=== PATIENT | female | born 1975 | race Two or more races ===

== ENCOUNTER 2017-01-06 12:54 | Inpatient (IN) | payer OTHER ==
[2017-01-06 14:46] VITALS: BMI 23.3
--- NOTE | 2017-01-06 16:52 | HP ---
CIWA Score - CIWA Score Nausea/Vomitin-No Nausea/No Vomiting Muscle Tremors: 4-Moderate,w/Arms Extend Anxiety: 3 Agitation: 4-Moderately Restless Paroxysmal Sweats: 3 Orientation: 0-Oriented Tacttile Disturbances: 0-None Auditory Disturbances: 0-None Visual Disturbances: 0-None Headache: 1-Very Mild CIWA-Ar Total Score: 15 Admission ROS [facility] - HPI Chief Complaint: I need to be here for detox Allergies/Adverse Reactions: Allergies Allergy/AdvReac Type Severity Reaction Status Date / Time No Known Allergies Allergy Verified 01/06/17 16:49 History of Present Illness: pt is a 41yr old female with a history of alcohol dependence seeking detox for treatment. pt is on a mmtp program receives 80mg of methadone last dosed yesterday, dose has been verified. Exam Limitations: Language Barrier (understands little ukrainian.) - Ebola screening Have you traveled outside of the country in the last 21 days: No Have you had contact with anyone from an Ebola affected area: No Have you been sick,other than usual withdrawal symptoms: No Do you have a fever: No - Review of Systems Constitutional: Loss of Appetite, Night Sweats, Unexplained wgt Loss EENT: reports: Tearing, Nose Congestion Respiratory: reports: Cough Cardiac: reports: No Symptoms Reported, Syncope GI: reports: Diarrhea, Poor Appetite, Poor Fluid Intake : reports: No Symptoms Reported Musculoskeletal: reports: Back Pain, Joint Pain Integumentary: reports: Flushing, Sweating Neuro: reports: Headache, Tingling, Tremors Endocrine: reports: Excessive Sweating, Flushing, Intolerance to Cold, Intolerance to Heat Hematology: reports: No Symptoms Reported Psychiatric: reports: Judgement Intact, Mood/Affect Appropiate, Orientated x3, Agitated, Anxious Other Systems: Reviewed and Negative Patient History - Patient Medical History Hx Anemia: No Hx Asthma: No Hx Chronic Obstructive Pulmonary Disease (COPD): No Hx Cancer: No Hx Cardiac Disorders: No Hx Congestive Heart Failure: No Hx Hypertension: No Hx Hypercholesterolemia: No Hx Pacemaker: No HX Cerebrovascular Accident: No Hx Seizures: No Hx Dementia: No Hx Diabetes: No Hx Gastrointestinal Disorders: No Hx Liver Disease: No Hx Genitourinary Disorders: No Hx Sexually Transmitted Disorders: No Hx Renal Disease (ESRD): No Hx Thyroid Disease: No Hx Human Immunodeficiency Virus (HIV): No (negative 1 month ago.) Hx Hepatitis C: Yes Hx Depression: Yes Hx Suicide Attempt: Yes (tried to cut self 3months ago) Hx Bipolar Disorder: Yes Hx Schizophrenia: Yes Other Medical History: anxiety - Patient Surgical History Past Surgical History: Yes Hx Neurologic Surgery: No Hx Cataract Extraction: No Hx Cardiac Surgery: No Hx Lung Surgery: No Hx Breast Surgery: No Hx Breast Biopsy: No Hx Abdominal Surgery: No Hx Appendectomy: No Hx Cholecystectomy: No Hx Genitourinary Surgery: No Hx Section: No Hx Orthopedic Surgery: Yes (L MANDIBLE FX AT AGE 8 YRS) Other Surgical History: left mandibular surgery - PPD History Previous Implant?: Yes Documented Results: Negative w/o proof PPD to be Administered?: No - Reproductive History Patient is a Female of Child Bearing Age (11 -55 yrs old): Yes Last Menstrual Period: 01/04/17 Patient : No - Smoking Cessation Smoking history: Current every day smoker Have you smoked in the past 12 months: Yes Aproximately how many cigarettes per day: 20 Cigars Per Day: 0 Hx Chewing Tobacco Use: No Initiated information on smoking cessation: Yes 'Breaking Loose' booklet given: 01/06/17 - Substance & Tx. History Hx Alcohol Use: Yes Hx Substance Use: No Substance Use Type: Alcohol, Cocaine Hx Substance Use Treatment: Yes (last detox 2 weeks ago at [facility] ) - Substances Abused Alcohol Route: Oral Frequency: Daily Amount used: 20 cans of 40oz paula Age of first use: 40 Date of Last Use: 01/06/17 Cocaine Route: Smoking Frequency: Daily Amount used: $200 Age of first use: 12 Date of Last Use: 01/06/17 Heroin Route: Injection Frequency: 1-2 times per week Amount used: 2 bags Age of first use: 12 Date of Last Use: 01/02/17 Family Disease History - Family Disease History Family History: Denies Admission Physical Exam S - Vital Signs Vital Signs: Vital Signs - 24 hr 01/06/17 14:43 Temperature 96.9 F L Pulse Rate 73 Respiratory 18 Rate Blood Pressure 114/81 - Physical General Appearance: Yes: Appropriately Dressed, Moderate Distress, Tremorous, Irritable, Sweating, Anxious HEENTM: Yes: Hearing grossly Normal, Normal Voice Respiratory: Yes: Lungs Clear, Normal Breath Sounds, No Respiratory Distress Neck: Yes: No masses,lesions,Nodules Breast: Yes: Within Normal Limits Cardiology: Yes: Regular Rhythm, Regular Rate, S1, S2 Abdominal: Yes: Normal Bowel Sounds Genitourinary: Yes: Within Normal Limits Back: Yes: Normal Inspection Musculoskeletal: Yes: full range of Motion, Back pain Extremities: Yes: Normal Capillary Refill, Normal Inspection, Tremors Neurological: Yes: Fully Oriented, Alert, Normal Response Integumentary: Yes: Normal Color, Diaphoresis, Track Peters Lymphatic: Yes: Within Normal Limits - Diagnostic (1) Alcohol dependence with uncomplicated withdrawal Current Visit: Yes Status: Chronic (2) Asthma Current Visit: Yes Status: Chronic Qualifiers: Asthma severity: mild (3) Bipolar disorder Current Visit: Yes Status: Chronic (4) Cocaine dependence Current Visit: Yes Status: Chronic (5) Methadone maintenance therapy patient Current Visit: Yes Status: Chronic Comment: last dose received yesterday with 80mg of methadone, verification done. (6) Nicotine dependence Current Visit: Yes Status: Chronic (7) Schizoaffective disorder Current Visit: Yes Status: Chronic Cleared for Admission [facility] - Detox or Rehab [facility] Level of Care: Medically Managed Detox Regimen/Protocol: Librium [facility] Breath Alcohol Content Breath Alcohol Content: 0 Urine Pregancy Test - Result Urine Test Results: Negative- NO Line Present Urine Drug Screen - Results Drug Screen Negative: No Urine Drug Screen Results: ALBERTO-Cocaine, MTD-Methadone, TCA-Tricyclic Antidepress
[2017-01-06] MEDS ORDERED: MENTHOL/PHENOL 1 EACH UD MM PRN (17:06)
[2017-01-06] MEDS ORDERED: hydrOXYzine PAMOATE 50 MG CAPSULE (FP) PO PRN (17:06)
[2017-01-06] MEDS ORDERED: guaiFENesin/D-METHORPHAN HB 10 ML UNIT-DOSE CUPS PO PRN (17:06)
[2017-01-06] MEDS ORDERED: P-EPHED 60MG/TRIPROLIDI 2.5MG TABLET PO PRN (17:06)
[2017-01-06] MEDS ORDERED: MAGNESIUM HYDROX 2400MG/30ML ORAL SUSPENSION 30 ML CUP PO PRN (17:06)
[2017-01-06] MEDS ORDERED: MAGNESIUM CITRATE 300 ML BOTTLE PO PRN (17:06)
[2017-01-06] MEDS ORDERED: MAG HYDROX/AL HYDROX/SIMETH 30 ML UNIT-DOSE CUP PO PRN (17:06)
[2017-01-06] MEDS ORDERED: LOPERAMIDE HCL 2 MG CAPSULE PO PRN (17:06)
[2017-01-06] MEDS ORDERED: chlordiazePOXIDE HCL 25 MG CAPSULE PO PRN (17:06)
[2017-01-06] MEDS ORDERED: IBUPROFEN 400 MG TABLET (FP) PO PRN (17:06)
[2017-01-06] MEDS ORDERED: ACETAMINOPHEN 325 MG TABLET (FP) PO PRN (17:06)
[2017-01-06] MEDS ORDERED: ALBUTEROL SO4 2.5/IPRATROPIUM 0.5 INH SOL 3 ML VIAL.NEB. NEB ONE (17:09)
[2017-01-06] MEDS ORDERED: ALBUTEROL SO4 2.5/IPRATROPIUM 0.5 INH SOL 3 ML VIAL.NEB. NEB PRN (17:09)
[2017-01-06] MEDS ORDERED: chlordiazePOXIDE HCL 25 MG CAPSULE PO ONE (19:00)
[2017-01-06] MEDS ORDERED: METHADONE HCL 40 MG DISPERSABLE TABLET PO ONE (19:00)
[2017-01-06 21:24] LABS: URINE APPEARANCE CLOUDY; URINE BILIRUBIN NEGATIVE (NEGATIVE); URINE BLOOD 2+ (NEGATIVE); URINE COLOR AMBER; URINE GLUCOSE (UA) NEGATIVE (NEGATIVE); URINE KETONE NEGATIVE (NEGATIVE); URINE NITRITE NEGATIVE (NEGATIVE); URINE UROBILINOGEN NEGATIVE mg/dL (0.2-1.0)
[2017-01-06 21:25] LABS: URINE PROTEIN 1+ (NEGATIVE)
[2017-01-06 21:27] LABS: URINE MUCUS MODERATE; URINE RBC 6 /hpf (0-3); URINE WBC 17 /hpf (3-5)
[2017-01-06] MEDS: THIAMINE HCL 100 MG TABLET (FP) PO SCH (22:32)
[2017-01-06] MEDS: diphenhydrAMINE HCL 50 MG CAPSULE PO PRN (22:32)
[2017-01-06] MEDS: ALBUTEROL SO4 18 GM HFA INHALER IH PRN (22:33)
[2017-01-06] MEDS: chlordiazePOXIDE HCL 25 MG CAPSULE PO SCH (22:33)
[2017-01-06] MEDS: IBUPROFEN 600 MG TABLET (FP) PO PRN (22:38)
[2017-01-06 22:46] LABS: URINE LEUK ESTERASE Negative (NEGATIVE)
[2017-01-07] MEDS: METHADONE HCL 40 MG DISPERSABLE TABLET PO SCH (06:16)
[2017-01-07] MEDS: chlordiazePOXIDE HCL 25 MG CAPSULE PO SCH ×4 (06:16→22:43)
[2017-01-07] MEDS: IBUPROFEN 600 MG TABLET (FP) PO PRN ×2 (06:18→17:22)
--- NOTE | 2017-01-07 07:30 | CONSULT ---
[facility] Psychiatric Consult - Data Date of interview: 01/07/17 Admission source: [facility] Identifying data: This is 41 years old martiniquais speaking female with history of Schizoaffective disorder, history of multiple psychiatric admissions, intoxicated with;. HEROIN, cOCAINE, aLCOHOL AND nICOTINE Substance Abuse History: - Smoking Cessation. Smoking history: Current every day smoker. Have you smoked in the past 12 months: Yes. Aproximately how many cigarettes per day: 20. Cigars Per Day: 0. Hx Chewing Tobacco Use: No. Initiated information on smoking cessation: Yes. 'Breaking Loose' booklet given : 01/06/17. - Substance & Tx. History. Hx Alcohol Use: Yes. Hx Substance Use : No. Substance Use Type: Alcohol, Cocaine. Hx Substance Use Treatment: Yes ( last detox [address] [facility] ). - Substances Abused. Alcohol. Route: Oral. Frequency: Daily. Amount used: 20 cans of 40oz paula. Age of first use: 40. Date of Last Use: 01/06/17. Cocaine. Route: Smoking. Frequency: Daily. Amount used: $200. Age of first use: 12. Date of Last Use: 01/06/17. Heroin. Route: Injection. Frequency: 1-2 times per week. Amount used: 2 bags. Age of first use: 12. Date of Last Use: 01/02/17 Medical History: Asthma, MMTP 80mg per day, reports highest MMTP in the past was 15 Psychiatric History: Patient reports history of Schizoaffective disorder, reports history of self mutilation, most recent psychiatric admissiojn on 2017 ( 4 times), after superficial forearms cuts, no stitches applyed history, reports taking prior aisha admission: Seroquel 100mg po bid. Ambien 5mg po qhs Physical/Sexual Abuse/Trauma History: Denies Additional Comment: Seroquel 100mg po bid. Ambien 5mg po qhs Mental Status Exam - Mental Status Exam Alert and Oriented to: Person Cognitive Function: Fair Patient Appearance: Unkempt Mood: Nervous, Withdrawn, Anxious Affect: Constricted Patient Behavior: Fatigued, Guarded, Impulsive Speech Pattern: Excessive Voice Loudness: Mildly Loud Thought Process: Circumstantial Thought Disorder: Being Controlled Hallucinations: Denies Suicidal Ideation: Denies Homicidal Ideation: Denies Insight/Judgement: Fair Sleep: Difficulty falling asleep Appetite: Weight loss Muscle strength/Tone: Mild Hypertonicity Gait/Station: Normal Additional Comments: Seroquel 100mg po bid. Ambien 5mg po qhs Psychiatric Findings - Problem List ([place] 1, 2,3) (1) Alcohol dependence with uncomplicated withdrawal Current Visit: Yes Status: Chronic (2) Bipolar disorder Current Visit: Yes Status: Chronic (3) Cocaine dependence Current Visit: Yes Status: Chronic (4) Methadone maintenance therapy patient Current Visit: Yes Status: Chronic Comment: last dose received yesterday with 80mg of methadone, verification done. (5) Nicotine dependence Current Visit: Yes Status: Chronic (6) Schizoaffective disorder Current Visit: Yes Status: Chronic - Initial Treatment Plan Initial Treatment Plan: Seroquel 100mg po bid. Ambien 5mg po qhs
[2017-01-07] MEDS: NICOTINE 21 MG/24 HOURS TOPICAL PATCH TD SCH (10:10)
[2017-01-07] MEDS: PRENATAL VITAMINS W/ FOLIC ACID TABLET (FP) PO SCH (10:11)
[2017-01-07] MEDS: QUEtiapine FUMARATE 100 MG TABLET (FP) PO SCH ×2 (10:13→22:43)
--- NOTE | 2017-01-07 11:57 | EKG ---
Test Reason : Blood Pressure : / mmHG Vent. Rate : 066 BPM Atrial Rate : 066 BPM P-R Int : 164 ms QRS Dur : 104 ms QT Int : 450 ms P-R-T Axes : 055 073 061 degrees QTc Int : 471 ms NORMAL SINUS RHYTHM WITH SINUS ARRHYTHMIA INCOMPLETE RIGHT BUNDLE BRANCH BLOCK BORDERLINE ECG NO PREVIOUS ECGS AVAILABLE Confirmed by EYAL KOVACS MD ([id number]) on 01/07/2017 11:57:03 AM Referred By: Confirmed By:EYAL KOVACS MD
--- NOTE | 2017-01-07 14:07 | PN ---
[facility] CIWA - CIWA Score Nausea/Vomitin Muscle Tremors: 4-Moderate,w/Arms Extend Anxiety: 5 Agitation: 5 Paroxysmal Sweats: 3 Orientation: 0-Oriented Tacttile Disturbances: 1-Very Mild Itch/Numbness Auditory Disturbances: 0-None Visual Disturbances: 0-None Headache: 0-None Present CIWA-Ar Total Score: 21 [facility] Progress Note (SOAP) Subjective: Restless, anxious, manic, irritable, tremor, chills Objective: 01/07/17 14:05 Last Vital Signs Temp Pulse Resp BP Pulse Ox 97.8 F 60 20 114/67 01/07/17 10:00 01/07/17 10:00 01/07/17 10:00 01/07/17 10:00 Laboratory Tests 01/06/17 19:18 Urine Color Nena Urine Appearance Cloudy Urine pH 5.0 Ur Specific [place] >= 1.030 H Urine Protein 1+ H Urine Glucose (UA) Negative Urine Ketones Negative Urine Blood 2+ H Urine Nitrite Negative Urine Bilirubin Negative Urine Urobilinogen Negative Ur Leukocyte Esterase Negative Urine RBC 6 Urine WBC 17 Ur Epithelial Cells Rare Urine Mucus Moderate UA: abnormal; patient refused admission labs despite 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
[2017-01-07] MEDS: ALBUTEROL SO4 18 GM HFA INHALER IH PRN (17:29)
[2017-01-07] MEDS ORDERED: ZOLPIDEM TARTRATE 10 MG TABLET (PARK CARE ONLY) PO PRN (22:00)
[2017-01-07] MEDS: THIAMINE HCL 100 MG TABLET (FP) PO SCH (22:43)
[2017-01-08] MEDS: chlordiazePOXIDE HCL 25 MG CAPSULE PO SCH ×3 (06:32→17:58)
[2017-01-08] MEDS: METHADONE HCL 40 MG DISPERSABLE TABLET PO SCH (06:33)
[2017-01-08] MEDS: IBUPROFEN 600 MG TABLET (FP) PO PRN (06:34)
--- NOTE | 2017-01-08 09:18 | PN ---
S CIWA - CIWA Score Nausea/Vomitin-No Nausea/No Vomiting Muscle Tremors: 4-Moderate,w/Arms Extend Anxiety: 3 Agitation: 3 Paroxysmal Sweats: 3 Orientation: 0-Oriented Tacttile Disturbances: 0-None Auditory Disturbances: 0-None Visual Disturbances: 0-None Headache: 0-None Present CIWA-Ar Total Score: 13 [facility] Progress Note (SOAP) Subjective: irritable anxiety sweats the seroquel is too much for me and it is making me too groggy. i want it reduced. body aches open wound to finger Objective: 01/08/17 09:13 Vital Signs Temperature 96.9 F L 01/08/17 06:55 Pulse Rate 61 01/08/17 06:55 Respiratory Rate 16 01/08/17 06:55 Blood Pressure 92/60 01/08/17 06:55 O2 Sat by Pulse Oximetry (%) Laboratory Tests 01/06/17 19:18 Urine Color Nena Urine Appearance Cloudy Urine pH 5.0 Ur Specific [place] >= 1.030 H Urine Protein 1+ H Urine Glucose (UA) Negative Urine Ketones Negative Urine Blood 2+ H Urine Nitrite Negative Urine Bilirubin Negative Urine Urobilinogen Negative Ur Leukocyte Esterase Negative Urine RBC 6 Urine WBC 17 Ur Epithelial Cells Rare Urine Mucus Moderate rest of labs pending aaox3 ambulating no acute distress pt has her menstruation Assessment: 01/08/17 09:14 withdrawal sx Plan: continue detox labs pending psych ordered for seroquel re-adjustment bacitracin oint ordered for open cut to finger
--- NOTE | 2017-01-08 10:37 | PN ---
Psychiatric Progress Note Vital Signs: Vital Signs Period Temp Pulse Resp BP Sys/Dukes Pulse Ox Last 24 Hr 96.9 F-98.1 F 61-101 16-20 92-148/60-119 Date of Session: 01/08/17 Chief Complaint:: Seroquel dosage HPI: Patioent reprots feels drowsy day time after taking Seroquel 100mg po bid Current Medications: Active Medications Generic Name Dose Route Start Last Admin Trade Name Freq PRN Reason Stop Dose Admin Acetaminophen 650 mg 01/06/17 17:06 Tylenol - PO Q4H PRN FEVER OR PAIN Al Hydroxide/Mg Hydroxide 30 ml 01/06/17 17:06 Mylanta Oral Suspension - PO Q6H PRN DYSPEPSIA Albuterol Sulfate 2 puff 01/06/17 17:08 01/07/17 17:29 Ventolin Hfa Inhaler - IH 2 puff Q4H PRN Administration ASTHMA Albuterol/Ipratropium 1 amp 01/06/17 17:09 Duoneb - NEB Q4H PRN SHORTNESS OF BREATH Bacitracin 0.9 gm 01/08/17 10:00 Bacitracin - TP BID MARÍA Chlordiazepoxide HCl 10 mg 01/09/17 23:00 Librium - PO 01/10/17 17:01 [id number] MARÍA Chlordiazepoxide HCl 25 mg 01/06/17 17:06 Librium - PO 01/09/17 17:05 Q4H PRN WITHDRAWAL(CONT SUBST) Chlordiazepoxide HCl 25 mg 01/07/17 23:00 01/08/17 06:32 Librium - PO 01/08/17 17:01 25 mg [id number] MARÍA Administration Chlordiazepoxide HCl 15 mg 01/08/17 23:00 Librium - PO 01/09/17 17:01 [id number] MARÍA Diphenhydramine HCl 50 mg 01/06/17 17:06 01/06/17 22:32 Benadryl - PO 50 mg HSMR1 PRN Administration INSOMNIA Eucalyptus/Menthol/Phenol/Sorbitol 1 each 01/06/17 17:06 Cepastat Lozenge - MM Q4H PRN SORE THROAT Guaifenesin 10 ml 01/06/17 17:06 Robitussin Dm - PO Q6H PRN COUGH Hydroxyzine Pamoate 50 mg 01/06/17 17:06 Vistaril - PO Q4H PRN AGITATION Ibuprofen 600 mg 01/06/17 17:11 01/08/17 06:34 Motrin - PO 600 mg Q6H PRN Administration SEVERE PAIN Loperamide HCl 4 mg 01/06/17 17:06 Imodium - PO Q6H PRN DIARRHEA Magnesium Citrate 300 ml 01/06/17 17:06 Citroma - PO Q48H PRN CONSTIPATION Magnesium Hydroxide 30 ml 01/06/17 17:06 Milk Of Magnesia - PO DAILY PRN CONSTIPATION Methadone HCl 80 mg 01/07/17 06:00 01/08/17 06:33 Dolophine - PO 80 mg DAILY@0600 MARÍA Administration Nicotine 21 mg 01/07/17 10:00 01/07/17 10:10 Nicoderm Patch - TD 21 mg DAILY MARÍA Administration Multivit/Folic Acid/Iron 1 tab 01/07/17 10:00 01/07/17 10:11 Vitamins (Sjr) - PO 1 tab DAILY MARÍA Administration Pseudoephedrine/Triprolidine 1 combo 01/06/17 17:06 Actifed - PO TID PRN NASAL CONGESTION Quetiapine Fumarate 50 mg 01/08/17 10:00 Seroquel - PO BID MARÍA Thiamine HCl 100 mg 01/06/17 22:00 01/07/17 22:43 Vitamin B1 - PO 100 mg HS MARÍA Administration Zolpidem Tartrate 10 mg 01/07/17 22:00 Ambien - PO 01/10/17 21:59 HS PRN INSOMNIA Medication(s) Change(s): Seroquel 50mg po bid Mental Status Exam - Mental Status Exam Alert and Oriented to: Place, Person Cognitive Function: Fair Patient Appearance: Well Groomed Mood: Apprehensive Affect: Flat Patient Behavior: Cooperative Speech Pattern: Appropriate Voice Loudness: Mildly Soft/Quiet Thought Process: Goal Oriented Thought Disorder: Being Controlled Hallucinations: Denies Suicidal Ideation: Denies Homicidal Ideation: Denies Insight/Judgement: Fair Sleep: Difficulty falling asleep Appetite: Weight gain Muscle strength/Tone: Normal Gait/Station: Normal Additional Comments: Seroquel 50mg po bid Psychiatric Treatment Plan - Problem List (1) Alcohol dependence with uncomplicated withdrawal Current Visit: Yes (2) Bipolar disorder Current Visit: Yes (3) Cocaine dependence Current Visit: Yes (4) Methadone maintenance therapy patient Current Visit: Yes Comment: last dose received yesterday with 80mg of methadone, verification done. (5) Nicotine dependence Current Visit: Yes (6) Schizoaffective disorder Current Visit: Yes Initial treatment plan: Seroquel 50mg po bid
[2017-01-08 10:48] LABS: BASOPHIL 0.4 % (0-2.0); EOSINOPHIL 3.9 % (0-4.5); MCH 30.1 pg (25.7-33.7); MCHC 32.5 g/dl (32.0-36.0); MEAN CELL VOLUME 92.4 fl (80-96); MEAN PLT VOLUME 10.9 fl (7.5-11.1); NEUTROPHILS 31.9 % (42.8-82.8); PLATELET COUNT 160 K/MM3 (134-434); RDW 13.9 % (11.6-15.6); WHITE BLOOD COUNT 5.1 K/mm3 (4.0-10.0)
[2017-01-08] MEDS: PRENATAL VITAMINS W/ FOLIC ACID TABLET (FP) PO SCH (10:57)
[2017-01-08] MEDS: BACITRACIN 0.9 GM PACKET TP SCH ×2 (10:57→22:22)
[2017-01-08] MEDS: QUEtiapine FUMARATE 50 MG TABLET PO SCH ×2 (10:59→22:23)
[2017-01-08] MEDS: NICOTINE 21 MG/24 HOURS TOPICAL PATCH TD SCH (11:00)
[2017-01-08 11:06] LABS: ALK PHOS 145 U/L (45-117); ANION GAP 6 (8-16); BILIRUBIN,TOTAL 0.3 mg/dL (0.2-1.0); CALCIUM 8.5 mg/dL (8.5-10.1); CO2 28 mmol/L (21-32); CREATININE 0.6 mg/dL (0.55-1.02); GLUCOSE,RANDOM 66 mg/dL (74-106); SGOT/AST 23 U/L (15-37); SGPT/ALT 23 U/L (12-78)
[2017-01-08 11:50] LABS: HIV 1 & 2 AB NEGATIVE; HIV 1 AGp24 NEGATIVE
--- NOTE | 2017-01-08 12:15 | PN ---
[facility] Progress Note (SOAP) Subjective: sweats groggy the seroquel is too much for me can psych lower the dose body aches Objective: 01/08/17 12:14 Vital Signs Temperature 96.9 F L 01/08/17 10:08 Pulse Rate 70 01/08/17 10:08 Respiratory Rate 18 01/08/17 10:08 Blood Pressure 103/70 01/08/17 10:08 O2 Sat by Pulse Oximetry (%) Laboratory Tests 01/06/17 01/08/17 01/08/17: 07:00 07:00 WBC 5.1 RBC 4.09 Hgb 12.3 Hct 37.7 MCV 92.4 MCH 30.1 MCHC 32.5 RDW 13.9 Plt Count 160 D MPV 10.9 Neutrophils % 31.9 L Lymphocytes % 56.1 H Monocytes % 7.7 Eosinophils % 3.9 Basophils % 0.4 Sodium 139 Potassium 4.6 Chloride 105 Carbon Dioxide 28 Anion Gap 6 L BUN 15 Creatinine 0.6 Creat Clearance w eGFR > 60 Random Glucose 66 L D Calcium 8.5 Total Bilirubin 0.3 D AST 23 D ALT 23 Alkaline Phosphatase 145 H D Total Protein 6.0 L Albumin 3.0 L Urine Color Nena Urine Appearance Cloudy Urine pH 5.0 Ur Specific [place] >= 1.030 H Urine Protein 1+ H Urine Glucose (UA) Negative Urine Ketones Negative Urine Blood 2+ H Urine Nitrite Negative Urine Bilirubin Negative Urine Urobilinogen Negative Ur Leukocyte Esterase Negative Urine RBC 6 Urine WBC 17 Ur Epithelial Cells Rare Urine Mucus Moderate RPR Titer HIV 1&2 Antibody Screen HIV P24 Antigen 01/08/17 01/08/17 07:00 07:00 WBC RBC Hgb Hct MCV MCH MCHC RDW Plt Count MPV Neutrophils % Lymphocytes % Monocytes % Eosinophils % Basophils % Sodium Potassium Chloride Carbon Dioxide Anion Gap BUN Creatinine Creat Clearance w eGFR Random Glucose Calcium Total Bilirubin AST ALT Alkaline Phosphatase Total Protein Albumin Urine Color Urine Appearance Urine pH Ur Specific [place] Urine Protein Urine Glucose (UA) Urine Ketones Urine Blood Urine Nitrite Urine Bilirubin Urine Urobilinogen Ur Leukocyte Esterase Urine RBC Urine WBC Ur Epithelial Cells Urine Mucus RPR Titer Nonreactive HIV 1&2 Antibody Screen Negative HIV P24 Antigen Negative aaox3 ambulating no acute distress Assessment: 01/08/17 12:15 withdrawal sx Plan: continue detox increase fluids
[2017-01-08 14:39] LABS: URINE APPEARANCE SLCLOUDY; URINE BILIRUBIN NEGATIVE (NEGATIVE); URINE BLOOD 1+ (NEGATIVE); URINE COLOR LTYELLOW; URINE GLUCOSE (UA) 3+ (NEGATIVE); URINE KETONE NEGATIVE (NEGATIVE); URINE NITRITE NEGATIVE (NEGATIVE); URINE PROTEIN NEGATIVE (NEGATIVE); URINE UROBILINOGEN NEGATIVE mg/dL (0.2-1.0)
[2017-01-08 14:52] LABS: URINE MUCUS RARE; URINE RBC 4 /hpf (0-3); URINE WBC 38 /hpf (3-5); YEAST MODERATE
[2017-01-08 18:09] LABS: URINE LEUK ESTERASE 2+ (NEGATIVE)
[2017-01-08] MEDS: chlordiazePOXIDE 5 MG CAPSULE PO SCH (22:23)
[2017-01-08] MEDS: THIAMINE HCL 100 MG TABLET (FP) PO SCH (22:23)
[2017-01-09] MEDS: chlordiazePOXIDE 5 MG CAPSULE PO SCH ×4 (06:22→16:38)
[2017-01-09] MEDS: METHADONE HCL 40 MG DISPERSABLE TABLET PO SCH (06:22)
[2017-01-09] MEDS: IBUPROFEN 600 MG TABLET (FP) PO PRN ×2 (06:24→16:38)
[2017-01-09] MEDS: QUEtiapine FUMARATE 50 MG TABLET PO SCH ×2 (11:54→22:59)
[2017-01-09] MEDS: PRENATAL VITAMINS W/ FOLIC ACID TABLET (FP) PO SCH (11:54)
[2017-01-09] MEDS: BACITRACIN 0.9 GM PACKET TP SCH ×2 (11:54→22:59)
[2017-01-09] MEDS: NICOTINE 21 MG/24 HOURS TOPICAL PATCH TD SCH (11:55)
--- NOTE | 2017-01-09 12:55 | PN ---
[facility] Progress Note (SOAP) Subjective: feeling so much better sweats anxiety Objective: 01/09/17 12:54 Vital Signs Temperature 97.1 F L 01/09/17 10:01 Pulse Rate 68 01/09/17 10:01 Respiratory Rate 18 01/09/17 10:01 Blood Pressure 105/58 01/09/17 10:01 O2 Sat by Pulse Oximetry (%) aaox3 ambulating no acute distress Assessment: 01/09/17 12:55 mild withdrawal sx Plan: continue detox increase fluids d/c in am
[2017-01-09] MEDS: ALBUTEROL SO4 18 GM HFA INHALER IH PRN ×2 (15:06→23:00)
[2017-01-09] MEDS: THIAMINE HCL 100 MG TABLET (FP) PO SCH (22:59)
[2017-01-09] MEDS: chlordiazePOXIDE HCL 10 MG CAPSULE PO SCH (22:59)
[2017-01-10] MEDS: METHADONE HCL 40 MG DISPERSABLE TABLET PO SCH (06:39)
[2017-01-10] MEDS: chlordiazePOXIDE HCL 10 MG CAPSULE PO SCH ×3 (06:41→17:54)
[2017-01-10] MEDS: ALBUTEROL SO4 18 GM HFA INHALER IH PRN (06:44)
--- NOTE | 2017-01-10 09:59 | DS ---
[facility] Detox Discharge Summary Admission Date: 01/06/17 Discharge Date: 01/10/17 - History Present History: Cocaine Dependence Pertinent Past History: above - Physical Exam Results Vital Signs: Vital Signs Temperature 97.5 F L 01/10/17 06:53 Pulse Rate 62 01/10/17 06:53 Respiratory Rate 16 01/10/17 06:53 Blood Pressure 113/71 01/10/17 06:53 O2 Sat by Pulse Oximetry (%) - Treatment Hospital Course: Detox Protocol Followed, Detoxed Safely, Responded well, Discharged Condition Good, Rehab Referral Accepted - Medication Discharge Medications: Ambulatory Orders Albuterol Sulfate Inhaler - [Ventolin Hfa Inhaler -] 2 inh PO Q4H PRN 01/06/17 Quetiapine Fumarate [Seroquel] 100 mg PO BID 01/06/17 Quetiapine Fumarate [Seroquel] 100 mg PO BID #60 tablet 01/07/17 Zolpidem Tartrate [Ambien] 5 mg PO HS #30 tablet MDD 10 01/07/17 - Diagnosis (1) Alcohol dependence with uncomplicated withdrawal Current Visit: Yes Status: Chronic (2) Asthma Current Visit: Yes Status: Chronic Qualifiers: Asthma severity: mild (3) Bipolar disorder Current Visit: Yes Status: Chronic (4) Cocaine dependence Current Visit: Yes Status: Chronic (5) Methadone maintenance therapy patient Current Visit: Yes Status: Chronic (6) Nicotine dependence Current Visit: Yes Status: Chronic (7) Schizoaffective disorder Current Visit: Yes Status: Chronic - AMA Did Patient Leave Against Medical Advice: No
[2017-01-10] MEDS: PRENATAL VITAMINS W/ FOLIC ACID TABLET (FP) PO SCH (10:15)
[2017-01-10] MEDS: QUEtiapine FUMARATE 50 MG TABLET PO SCH ×2 (10:16→22:57)
[2017-01-10] MEDS: BACITRACIN 0.9 GM PACKET TP SCH ×2 (10:16→22:57)
[2017-01-10] MEDS: NICOTINE 21 MG/24 HOURS TOPICAL PATCH TD SCH (11:18)
[2017-01-10] MEDS: THIAMINE HCL 100 MG TABLET (FP) PO SCH (22:56)
[2017-01-10] MEDS: diphenhydrAMINE HCL 50 MG CAPSULE PO PRN (22:57)
[2017-01-10] MEDS: IBUPROFEN 600 MG TABLET (FP) PO PRN (22:59)
[2017-01-11 07:40] VITALS: BP 129/46; PULSE 60; TEMP 97.2
[2017-01-11] MEDS: METHADONE HCL 40 MG DISPERSABLE TABLET PO SCH (07:41)
--- NOTE | 2017-01-11 13:04 | PN ---
[facility] Progress Note Note: D/c was cancelled on 01/10 because pt. would not get to her [facility] on time. D/c pt. today
== END 2017-01-11 09:25 | disposition home or self-care (01) | DRG 773 ==
LOC: YASAS 12:54 → Y6N 18:02
PROVIDERS: ADMIT Internal Medicine; ATTEND Internal Medicine
PROC: HZ2ZZZZ Detoxification Services for Substance Abuse Treatment (ICD-10-PCS; principal; 2017-01-06)
DX: F10.230 Alcohol dependence with withdrawal, uncomplicated (principal); F11.20 Opioid dependence, uncomplicated; F14.20 Cocaine dependence, uncomplicated; F17.210 Nicotine dependence, cigarettes, uncomplicated; F25.9 Schizoaffective disorder, unspecified; F31.9 Bipolar disorder, unspecified; J45.30 Mild persistent asthma, uncomplicated; R82.90 Unspecified abnormal findings in urine; Z91.5 Personal history of self-harm
CPT/HCPCS: 36415; 80053; 81003; 81015; 85025; 86593; 87389; 93005; 93010; 94640